=== PATIENT | male | born 1980 | race Caucasian/White ===

== ENCOUNTER 2018-03-16 09:46 | Emergency (ER) | payer OTHER ==
[~2018-03-16] VITALS: Ht 172.7 cm; Wt 59.3 kg
[2018-03-16 09:47] VITALS: TEMP 36.6; Ht 172.7 cm; Wt 59.3 kg
[2018-03-16] MEDS ORDERED: APRE1TAB3 PO (10:01)
--- NOTE | 2018-03-16 10:33 | DIAGNOSTIC IMAGING REPORT ---
L HAND MIN 3 VIEWS ROUTINE CLINICAL HISTORY: Left hand pain COMPARISON: None. DISCUSSION: The bones and joint spaces appear intact. There is no evidence of fracture, dislocation or bony disease. There is no evidence for soft tissue swelling. IMPRESSION: Negative study. The above report was generated using voice recognition software. It may contain grammatical, syntax or spelling errors. Electronically signed by: Jarod Ireland M.D. 03/16/2018 10:32 AM Dictated Date/Time: 03/16/2018 10:32 AM
--- NOTE | 2018-03-16 10:57 | EMERGENCY ROOM VISIT NOTE ---
ED Visit Note First contact with patient: 09:47 CHIEF COMPLAINT: Left wrist and hand pain HISTORY OF PRESENT ILLNESS: This 37-year-old male presents to ER with chief complaint of left wrist and hand pain and numbness. 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 The patient tried ibuprofen last night without any relief. The patient also states that he has weakness in the left hand. The patient's injury occurred at work and was told to come to the emergency room since he could not get an appointment with [facility]. The patient has seen [facility] in the past. REVIEW OF SYSTEMS: 6 system review was performed and was negative unless stated otherwise in history of present illness. PMH: The patient is healthy; psoriasis SOCIAL HISTORY: Patient lives at home. PHYSICAL EXAM: Vital Signs: Were reviewed reviewed Nurse's notes. general: 37- year-old male appears in no acute distress. MENTAL Status: Alert and oriented 3. LEFT WRIST: No gross bony deformity noted. No erythema or edema noted. He has full range of motion of the wrist with pain elicited with ulnar deviation. Positive Karthikeyan's negative Phalen's negative Tinel's. Patient has decreased sensation over the fourth and fifth digits. EMERGENCY DEPARTMENT COURSE: The patient was evaluated. X-ray of the left wrist and hand was ordered interpreted by the radiologist without any acute findings. DIAGNOSTICS:L HAND MIN 3 VIEWS ROUTINE CLINICAL HISTORY: Left hand pain COMPARISON: None. DISCUSSION: The bones and joint spaces appear intact. There is no evidence of fracture, dislocation or bony disease. There is no evidence for soft tissue swelling. IMPRESSION: Negative study. The above report was generated using voice recognition software. It may contain grammatical, syntax or spelling errors. The patient was informed of the findings. The patient was placed in a wrist lacer splint and discharged home in stable condition. DIAGNOSIS: Tendonitis of the left wrist DISCHARGE INSTRUCTIONS AND TREATMENT: Wrist splint for 4 - 5 days. Ice to the swollen area frequently over the next 2 days. Ibuprofen, 600 mg every 6 hours for pain and inflammation. Rest the arm. Off work until evaluated by orthopedics. Call [facility] today for follow-up appointment. Current/Historical Medications Scheduled Apremilast (Otezla), Unknown Dose PO BID Allergies Coded Allergies: No Known Allergies (Unverified , 03/16/18) Vital Signs Date Time Temp Pulse Resp B/P (MAP) Pulse Ox O2 Delivery O2 Flow Rate FiO2 03/16/18 09:47 36.6 68 18 125/72 98 Room Air Departure Information Referrals No Doctor, Assigned (PCP) Patient Instructions [facility]
[2018-03-16 11:13] VITALS: BP 115/68; PULSE 60; O2SAT 98
== END 2018-03-16 11:14 | disposition home or self-care (01) ==
LOC: C.EDB 09:47
DX: M77.8 Other enthesopathies, not elsewhere classified (principal); W29.8XXA Contact with other powered hand tools and household machinery, initial encounter; Y99.0 Civilian activity done for income or pay